=== PATIENT | male | born 1995 | race Two or more races ===

== ENCOUNTER 2022-03-17 10:01 | Emergency (ER) | payer OTHER ==
[2022-03-17 11:27] VITALS: BP 136/88
[2022-03-17] MEDS ORDERED: LIDOCAINE 1% HCL (LOCAL ANESTH.) INJ 20ML MDV IJ ONE (14:45)
[2022-03-17] MEDS ORDERED: TETANUS-DIPTH-ACEL PERTUSSIS 0.5ML SYR Tdap IM ONE (15:15)
[2022-03-17] MEDS ORDERED: HYDROcodone-ACET 5/325MG TAB PO ONE (15:15)
[2022-03-17] MEDS ORDERED: CYCL-839 PO (15:57)
[2022-03-17] MEDS ORDERED: IBUP600T27 PO (15:57)
[2022-03-17] MEDS ORDERED: CEPH-510 PO (15:57)
[2022-03-17] MEDS ORDERED: cefTRIAXone SOD 1,000 MG VL IM ONE (16:00)
== END 2022-03-17 16:09 | disposition home or self-care (01) ==
LOC: ER 10:01
DX: S62.521B Displaced fracture of distal phalanx of right thumb, initial encounter for open fracture (principal); Z79.899 Other long term (current) drug therapy; W27.0XXA Contact with workbench tool, initial encounter; Y93.89 Activity, other specified; Y92.89 Other specified places as the place of occurrence of the external cause; Y99.8 Other external cause status
CPT/HCPCS: 29130; 73140; 90471; 90715; 96372; 99284; J0696; J2001; 12002